=== PATIENT | female | born 1970 | race Caucasian/White ===

== ENCOUNTER 2022-01-12 08:50 | Outpatient (CLI) | payer BC ==
[2022-01-12] MEDS ORDERED: Iopamidol 370 76% 100 ML VIAL ONE (11:24)
== END 2022-01-12 08:51 | disposition home or self-care (01) ==
LOC: CT 08:50
PROVIDERS: ATTEND Physician Assistant Medical
DX: R10.13 Epigastric pain (principal); R79.89 Other specified abnormal findings of blood chemistry; K76.0 Fatty (change of) liver, not elsewhere classified; N85.8 Other specified noninflammatory disorders of uterus
CPT/HCPCS: 74177; Q9967